=== PATIENT | female | born 1990 | race Two or more races ===

== ENCOUNTER 2020-08-05 13:02 | Outpatient (CLI) | payer OTHER | END 2020-08-05 17:48 | disposition home or self-care (01) | LOC: OFIC 805 13:02 | PROVIDERS: ATTEND Otolaryngology Otology & Neurotology | DX: K21.0 Gastro-esophageal reflux disease with esophagitis (principal); J02.8 Acute pharyngitis due to other specified organisms; R49.0 Dysphonia ==